=== PATIENT | female | born 2005 | race Caucasian/White ===

== ENCOUNTER 2024-05-07 11:09 | Emergency (ER) | payer BC, OTHER ==
[2024-05-07] MEDS: Bacitracin/Neomycin/Polymyxin B Oint 0.9 GM U/D Packet TOP ONE (11:28)
[2024-05-07] MEDS: Lidocaine 2% 5 ML SDV ONE (11:29)
[2024-05-07] MEDS: Lidocaine 2% 5 ML SDV INJECT ONE (11:29)
[2024-05-07] MEDS: Bacitracin/Neomycin/Polymyxin B Oint 0.9 GM U/D Packet ONE (11:29)
[2024-05-07] MEDS: Diphtheria,Pertussis(Acell),Tetanus Vaccine 0.5 ML Syringe IM ONE (11:40)
== END 2024-05-07 11:57 | disposition home or self-care (01) ==
LOC: KA.ED 11:09
DX: S61.012A Laceration without foreign body of left thumb without damage to nail, initial encounter (principal); Z23 Encounter for immunization; W26.0XXA Contact with knife, initial encounter
CPT/HCPCS: 12001; 90471; 90715; 99282-25; 99283; J2003